=== PATIENT | female | born 1980 | race Caucasian/White ===

== ENCOUNTER 2017-03-11 19:24 | Emergency (ER) | payer OTHER ==
[~2017-03-11] VITALS: Ht 172.7 cm; Wt 161.6 kg
[2017-03-11] MEDS ORDERED: KETOROLAC 30 MG/1 ML IM ONE (20:00)
[2017-03-11 20:07] LABS: BASOPHILS # (AUTO) 0.07 x10^3/uL (0-0.1); BASOPHILS % (AUTO) 1 % (0-1); EOSINOPHILS # (AUTO) 0.37 x10^3/uL (0-0.4); EOSINOPHILS % (AUTO) 3 % (1-7); LYMPHOCYTES % (AUTO) 21 % (22-44); MD NO; MEAN CORPUSCULAR HEMOGLOBIN 31.2 pg (27.0-34.8); MEAN CORPUSCULAR HGB CONC 34.2 g/dL (32.4-35.8); MEAN CORPUSCULAR VOLUME 91.2 fL (80-100); MEAN PLATELET VOLUME 9.9 fL (7.4-10.4); MONOCYTES # (AUTO) 0.69 x10^3/uL (0.2-0.8); MONOCYTES % (AUTO) 6 % (2-9); NEUTROPHILS # (AUTO) 7.41 x10^3/uL (1.8-6.8); NEUTROPHILS % (AUTO) 68 % (42-75); PLATELET COUNT 198 x10^3/uL (130-400); RED BLOOD COUNT 4.87 x10^6/uL (3.82-5.3); RED CELL DISTRIBUTION WIDTH 14.2 % (9.6-15.2)
[2017-03-11 20:19] LABS: ALANINE AMINOTRANSFERASE 18 U/L (12-78); ALBUMIN 3.7 g/dL (3.4-5.0); ANION GAP 11 mmol/L (5-15); CALCIUM 8.1 mg/dL (8.5-10.1); CHLORIDE 106 mmol/L (98-107); CREATININE 0.83 mg/dL (0.55-1.02)
[2017-03-11 20:23] LABS: ALKALINE PHOSPHATASE 46 U/L (45-117); BILIRUBIN,TOTAL 0.5 mg/dL (0.2-1.0); TOTAL PROTEIN 7.3 g/dL (6.4-8.2)
[2017-03-11 20:27] LABS: MICROSCOPIC AUTO
[2017-03-11 20:34] LABS: CULTURE INDICATED? YES
[2017-03-11 21:59] LABS: CULTURE INDICATED? YES; MICROSCOPIC INDICATED
[2017-03-11 22:34] VITALS: BP 114/49
== END 2017-03-11 22:36 | disposition home or self-care (01) ==
LOC: ED 20:51
DX: R10.31 Right lower quadrant pain (principal); E03.9 Hypothyroidism, unspecified
CPT/HCPCS: 36415; 76830; 80053; 81001; 84703; 85025; 87077; 87086; 87186; 99285

== ENCOUNTER 2019-12-15 09:20 | Emergency (ER) | payer OTHER ==
[~2019-12-15] VITALS: Ht 172.7 cm; Wt 150.0 kg
--- NOTE | 2019-12-15 09:52 | NUR ---
LEFT FOOT PAIN X17 DAYS NOT IMPROVING, SEEN BY [facility]ENATA AND PCP, HAD IMAGING RECENTLY. CURRENTLY TREATED FOR GOUT. PT ALSO STATES " I THINK I HAVE A UTI" "I THINK I HAVE HAD A UTI FOR THE PAST 5 DAYS. PT IN GOWN USING THE REST ROOM AT THIS TIME.
[2019-12-15] MEDS ORDERED: KETOROLAC 30 MG/1 ML ONE (10:29)
[2019-12-15] MEDS ORDERED: KETOROLAC 30 MG/1 ML IM ONE (10:30)
[2019-12-15] MEDS ORDERED: HYDROcodone/APAP 5/325 TABLET ONE (10:30)
[2019-12-15] MEDS ORDERED: HYDROcodone/APAP 5/325 TABLET PO ONE (10:30)
[2019-12-15 10:33] LABS: MICROSCOPIC INDICATED
--- NOTE | 2019-12-15 10:44 | NUR ---
PT MEDICATED PER EMAR FOR PAIN. PT AWAITING US. WHEELED PT TO BATHROOM TO PROVIDE URINE SAMPLE. URINE WALKED TO LAB.
--- NOTE | 2019-12-15 11:31 | NUR ---
PT RESTING CALMLY IN BED AT THIS TIME. VSS, SEE CHARTED.
[2019-12-15 12:04] VITALS: BP 108/54
== END 2019-12-15 12:18 | disposition home or self-care (01) ==
LOC: ED 10:09
DX: M1A.0720 Idiopathic chronic gout, left ankle and foot, without tophus (tophi) (principal); N30.00 Acute cystitis without hematuria; F17.210 Nicotine dependence, cigarettes, uncomplicated
CPT/HCPCS: 36415; 81001; 84550; 87077; 87086; 93971; 96372; 99285; J1885; 87147; 87186